=== PATIENT | female | born 1995 | race Two or more races ===

== ENCOUNTER 2025-04-30 16:34 | Emergency (ER) | payer SELFPAY ==
[~2025-04-30] VITALS: Ht 160 cm; Wt 65.5 kg
[2025-04-30 16:40] VITALS: BP 119/65; PULSE 64; RESP 16; TEMP 97.8; O2SAT 97
[2025-04-30] MEDS ORDERED: ketorolac trometh 15mg/ml vial 15 MG/ML ML IM ONE (16:45)
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
== END 2025-04-30 18:50 | disposition left against medical advice (07) ==
LOC: ER 16:35
DX: R51.9 Headache, unspecified (principal); R42 Dizziness and giddiness; V43.52XA Car driver injured in collision with other type car in traffic accident, initial encounter; Y93.89 Activity, other specified; Y92.89 Other specified places as the place of occurrence of the external cause; Y99.8 Other external cause status
CPT/HCPCS: 99281